=== PATIENT | female | born 1945 | race Caucasian/White ===

== ENCOUNTER 2017-12-31 09:48 | Emergency (ER) | payer OTHER ==
[~2017-12-31] VITALS: Ht 149.9 cm; Wt 108.9 kg
[~2017-12-31 09:48] MED LIST: BG MC; COL100 PO; EXEMESTANE PO; FERL PO; FERROUS SULFAT325 M2 PO; GLIPIZIDE5 MG PO; HUMULIN R100 U/1 M1 SC; HYD25 PO; LASIX40 MG PO; LEVEMIR100 U/M1 SQ; LOPRESSOR50 MG PO; MAC100 PO; MAG PO; MEDDP PO; METHOCARBAMOL500 MG PO; NEU300 PO; NOVI; NOVOLIN R100 U/ML IJ; PRI20 PO; PRO30 PO; PRO60 PO; VITAMIN-D1000 IU PO; ZOC20 PO
[2017-12-31 09:59] VITALS: Ht 149.9 cm; Wt 108.9 kg
[2017-12-31 12:43] VITALS: BP 172/92
== END 2017-12-31 12:43 | disposition home or self-care (01) ==
LOC: ED 09:48
DX: M54.16 Radiculopathy, lumbar region (principal); E11.22 Type 2 diabetes mellitus with diabetic chronic kidney disease; I12.0 Hypertensive chronic kidney disease with stage 5 chronic kidney disease or end stage renal disease; N18.6 End stage renal disease; E78.00 Pure hypercholesterolemia, unspecified; E66.01 Morbid (severe) obesity due to excess calories; Z90.12 Acquired absence of left breast and nipple
CPT/HCPCS: J1100; J1885

== ENCOUNTER 2018-08-29 17:29 | Emergency (ER) | payer OTHER ==
[~2018-08-29] VITALS: Ht 149.9 cm; Wt 99.8 kg
[2018-08-29 17:43] VITALS: Ht 149.9 cm; Wt 99.8 kg
[2018-08-29 19:31] VITALS: BP 165/73
== END 2018-08-29 20:45 | disposition home or self-care (01) ==
LOC: ED 17:29
DX: S40.022A Contusion of left upper arm, initial encounter (principal); I12.0 Hypertensive chronic kidney disease with stage 5 chronic kidney disease or end stage renal disease; E11.22 Type 2 diabetes mellitus with diabetic chronic kidney disease; N18.6 End stage renal disease; Z90.12 Acquired absence of left breast and nipple; Z90.710 Acquired absence of both cervix and uterus; Z98.890 Other specified postprocedural states; Z99.2 Dependence on renal dialysis; W18.11XA Fall from or off toilet without subsequent striking against object, initial encounter; Y93.89 Activity, other specified; Y92.89 Other specified places as the place of occurrence of the external cause; Y99.8 Other external cause status
CPT/HCPCS: Q0092

== ENCOUNTER 2018-09-30 11:46 | Inpatient (IN) | payer OTHER ==
[~2018-09-30] VITALS: Ht 157.5 cm; Wt 96.2 kg
[2018-09-30 12:11] LABS: BASOPHIL % 0.1 % (0-2); PLATELET COUNT 238 x10^3mcL (130-400)
[2018-09-30 12:23] VITALS: Ht 157.5 cm; Wt 96.2 kg
[2018-09-30 12:25] LABS: ALBUMIN 3.6 g/dL (3.4-5.0); ALKALINE PHOSPHATASE 114 U/L (46-116); ALT/SGPT 18 U/L (14-59); AST/SGOT 19 U/L (15-37); BILIRUBIN TOTAL 0.5 mg/dL (0.20-1.00); CALCIUM 9.9 mg/dL (8.5-10.1); CARBON DIOXIDE 29.7 mmol/L (21-32); CHLORIDE SERUM 97 mmol/L (98-107); GLUCOSE SERUM 169 mg/dL (74-106); LIPASE 139 IU/L (73-393); POTASSIUM SERUM 4.5 mmol/L (3.5-5.1); SODIUM SERUM 136 mmol/L (136-145); TOTAL PROTEIN, SERUM 7.9 g/dL (6.4-8.2)
[2018-09-30 12:28] LABS: AMYLASE 22 U/L (25-115); CREATININE SERUM 6.9 mg/dL (0.6-1.0)
[2018-09-30 14:23] LABS: CHOLESTEROL/HDL RATIO 3.1; MAGNESIUM 1.4 mg/dL (1.8-2.4); PHOSPHOROUS 3.3 mg/dL (2.5-4.9)
[2018-09-30 14:31] LABS: T3 TOTAL 0.99 ng/mL
[2018-09-30 14:55] LABS: FREE T4 1.46 ng/dL (0.76-1.46); T4(THYROXINE) 10.8 ug/dL (4.7-13.3)
[2018-09-30] MEDS ORDERED: HYDRALAZINE HCL25 MG PO (16:02)
[2018-09-30] MEDS ORDERED: GLIPIZIDE5 M2 PO (16:03)
[2018-09-30] MEDS ORDERED: DONEPEZIL HYDROC5 M2 PO (16:03)
[2018-09-30] MEDS ORDERED: GABAPENTIN100 M2 PO (16:04)
[2018-09-30] MEDS ORDERED: AROMASIN25 MG PO (16:04)
[2018-09-30] MEDS ORDERED: METOPROLOL TART50 MG PO (16:04)
[2018-09-30] MEDS ORDERED: GOOD SENSE OMEP20 MG PO (16:05)
[2018-09-30 17:20] VITALS: BP 135/82
[2018-09-30 18:12] VITALS: BP 129/75
[2018-09-30 21:39] VITALS: BP 140/62
[2018-10-01 05:59] VITALS: BP 109/55
[2018-10-01 07:13] LABS: BASOPHIL % 0.3 % (0-2); PLATELET COUNT 199 x10^3mcL (130-400); RED CELL DISTRIBUTION WIDTH 14.4 % (11.5-14.5)
[2018-10-01 07:14] LABS: CALCIUM 9.1 mg/dL (8.5-10.1); CARBON DIOXIDE 28.3 mmol/L (21-32); CHLORIDE SERUM 100 mmol/L (98-107); GLUCOSE SERUM 130 mg/dL (74-106); MAGNESIUM 1.6 mg/dL (1.8-2.4); PHOSPHOROUS 3.2 mg/dL (2.5-4.9); POTASSIUM SERUM 3.5 mmol/L (3.5-5.1); SODIUM SERUM 138 mmol/L (136-145)
[2018-10-01 07:18] LABS: CREATININE SERUM 4.6 mg/dL (0.6-1.0)
[2018-10-01 08:00] VITALS: BP 125/46
[2018-10-01 16:07] VITALS: BP 125/46
== END 2018-10-01 17:55 | disposition home or self-care (01) | DRG 391 ==
LOC: ED 11:46 → MU 13:26
PROVIDERS: Internal Medicine Nephrology; Specialist; ADMIT General Practice
DX: A08.4 Viral intestinal infection, unspecified (principal); N17.0 Acute kidney failure with tubular necrosis; E83.42 Hypomagnesemia; D72.829 Elevated white blood cell count, unspecified; E11.9 Type 2 diabetes mellitus without complications; Z79.84 Long term (current) use of oral hypoglycemic drugs; E78.5 Hyperlipidemia, unspecified
CPT/HCPCS: 36600; 82962; 83880; 84439; 87046; 87046-59; 87804; J2405; J3475; J7030; Q0092